=== PATIENT | female | born 1955 | race Caucasian/White ===

== ENCOUNTER 2016-08-23 15:25 | Emergency (ER) | payer BC ==
--- NOTE | ~2016-08-23 | CT4 ---
[facility] A Service of [facility] RADIOLOGY TEXT RESULTS PATIENT: ZARIA MELENDEZ LOCATION: [facility] : 59 UNIT #: [id number] AGE: [address]: Janny Lomas MD SEX: F ORDER DR: [id number] [facility] [address] [place], [place] [address] [id number] MR#: [id number] #: [id number] NAME: ZARIA MELENDEZ. : 1955 SEX: F STUDY DATE/TIME: 08/23/2016 19:41 UNIT: [facility] ROOM: STUDY DESCRIPTION: CT Abd and Pelv Wo Cont Attending Physician: Janny Lomas M.D. Ordering Physician: Janny Lomas M.D. Primary Care Physician: Zack Parsons M.D. MEDICAL IMAGING REPORT This report is preliminary unless electronic signature is present EXAM CT abdomen and pelvis 08/23/2016 HISTORY Left flank pain, nausea 2-3 days, kidney stones and stent. FINDINGS CT abdomen and pelvis performed without administration of oral or intravascular contrast. Comparison 11/23/2006. This CT examination was performed with one or more of the following radiation dose reduction techniques: automatic exposure control, adjustment of mA and/or kV according to patient size, and iterative reconstruction. The lung bases show calcified granuloma left lung base. Otherwise clear. Inferior heart and pericardium unremarkable. Calcified hepatic and splenic granulomata. Status post cholecystectomy. No biliary obstruction. Pancreas, adrenal glands unremarkable. Multiple small nonobstructing right renal calculi largest measuring on order of 2-3 mm. Right ureter remarkable. Mild left hydronephrosis. Multiple nonobstructing intrarenal calculi on the left. There is mild left hydroureter to the level of a 5-6 mm calculus about 1 cm above the left ureterovesical junction. There is mild left perinephric inflammatory change and there may be a trace amount of fluid adjacent to the left kidney. There is no drainable perinephric fluid collection. No other left ureteral calculi are seen. CT PELVIS: No inguinal adenopathy. Small focus of air in the urinary bladder. Favored to reflect recent instrumentation. Correlate clinically. Bladder otherwise unremarkable. Status post hysterectomy. I believe the patient retains the bilateral ovaries which are atrophic. There are tubal ligation clips in the pelvis. There is no pelvic fluid collection. There is no retroperitoneal or pelvic adenopathy. The distal esophagus, stomach, unremarkable. There are some mildly distended loops STS. [facility] A Service of [facility] RADIOLOGY TEXT RESULTS PATIENT: ZARIA MELENDEZ [id number] 59 UNIT #: [id number] AGE: [address]: Janny Lomas MD SEX: F ORDER DR: of jejunum in the left hemiabdomen measuring up to about 2.7 cm in diameter. There are intervening loops of decompressed small bowel in the abdomen. Air and fluid seen in mildly distended terminal ileum. There is no compelling evidence of small bowel obstruction. Please correlate with the patient's clinical presentation. Small bowel could best be further evaluated with contrast-enhanced examination utilizing enteric contrast. The colon contains moderate stool burden. No colonic inflammatory change or pathologic dilatation. Unopacified vascular structures unremarkable. Degenerative changes in spine. No acute-appearing bony abnormality. IMPRESSION 1. See the complete dictation above for full details. There is a 5-6 mm calculus in the distal left ureter, within a centimeter of the left ureterovesical junction resulting in mild left hydronephrosis and hydroureter. There is mild left perinephric inflammatory change and a trace amount of perinephric fluid but no drainable fluid collection. No other ureteral calculi are seen. There are bilateral intrarenal nonobstructing calculi. 2. Small focus of air in urinary bladder favored to reflect instrumentation. Correlate with any recent catheterization. Bladder otherwise unremarkable. 3. Status post cholecystectomy and hysterectomy. Patient appears to retain bilateral atrophic ovaries. 4. There is mild distension of some loops of jejunum containing food debris, fluid and air, without wall or fold thickening or adjacent inflammatory change. Intervening decompressed loops of small bowel, air and fluid seen in distal ileum. Favor the appearance of the small bowel is physiologic. Similar appearance on prior studies. There is no compelling evidence of small bowel obstruction. Correlate with the patient's clinical presentation. 5. Moderate stool burden in colon. No acute appearing colonic abnormality. Please see remainder of incidental findings in body of report above. Dictated by... Hrei Yousif M.D. THIS IS AN ELECTRONICALLY VERIFIED REPORT Heri Yousif M.D. at 08/24/2016 8:14 AM ALICIA/stacie TD: 08/24/2016 07:07 JOB #: [id number] MEDICAL IMAGING REPORT Page 1 of 1 COPY
[~2016-08-23 15:25] MED LIST: BACTRIM DS TABL1 TAB PO; CELEXA PO; COZAAR PO; FLEXERIL PO; HYDROCODONE-APA1 T30 PO; MULTI-VITAMIN1 TAB PO; PREMARIN PO; REGLAN PO; TYLOX 5/500 CAP1 CAP PO
[2016-08-23 16:04] LABS: BASOPHIL% 0.4 % (0-2.5); EOSINOPHIL% 0.8 % (0.0-7.0); HEMATOCRIT 38.2 % (35.0-45.0); HEMOGLOBIN 12.4 gm/dL (12.0-16.0); LYMPHOCYTE# 1.9 X10e3 (1.0-3.5); LYMPHOCYTE% 36.4 % (17.0-45.0); MEAN CELL VOLUME 82.3 FL (83-96); MEAN CORPUSCULAR HEMOGLOBIN 26.8 PG (28-34); MEAN CORPUSCULAR HGB CONC 32.5 g/dL (30-36); MEAN PLATELET VOLUME 7.6 FL (6.5-11.5); MONOCYTE# 0.3 X10e3 (0-1.0); NEUTROPHIL# 2.9 X10e3 (1.5-7.1); NEUTROPHIL% 56.4 % (40-75); PLATELET COUNT 139 X10e3 (140-420); RED BLOOD COUNT 4.65 X10e (3.90-5.30); RED CELL DISTRIBUTION WIDTH 14.3 % (11.0-15.5); WHITE BLOOD COUNT 5.2 X10e3 (4.0-10.5)
[2016-08-23 16:06] LABS: DIFF IND NO
[2016-08-23 16:30] LABS: BILIRUBIN, DIRECT 0.1 mg/dL (0.0-0.2); BILIRUBIN,INDIRECT 0.3 mg/dL (0.0-0.9); BILIRUBIN,TOTAL 0.4 mg/dL (0.2-2.0); CALCIUM SERUM 9.3 mg/dL (8.4-10.2); CREATININE SERUM 1.5 mg/dL (0.6-1.4); GLOM FILT RATE Estimated 37.8 mL/min (>60); POTASSIUM 3.6 mmol/L (3.5-5.1); PROTEIN TOTAL SERUM 7.3 g/dL (6.0-8.3)
[2016-08-23 17:17] LABS: URINE SOURCE CLEAN CATCH
[2016-08-23 17:24] LABS: URINE APPEARANCE CLOUDY; URINE BILIRUBIN NEG (NEG); URINE BLOOD 2+ (NEG); URINE COLOR YELLOW; URINE GLUCOSE NEG (NEG); URINE KETONE TRACE (NEG); URINE LEUKOCYTE ESTERASE TRACE (NEG); URINE NITRATE NEG (NEG); URINE PROTEIN 1+ (NEG); URINE SPECIFIC GRAVITY 1.025 (1.003-1.035); URINE UROBILINOGEN 0.2 MG/DL (NEG)
[2016-08-23 17:27] LABS: CULTURE INDICATED? YES; U HYALINE CASTS AUWI 0-2 /[LPF]; URINE BACTERIA AUWI NEG (NEGATIVE); URINE SQUAMOUS EPITHELIAL CELL OCC /[HPF]
== END 2016-08-23 22:21 | disposition home or self-care (01) ==
LOC: CED 15:25
DX: N13.2 Hydronephrosis with renal and ureteral calculous obstruction (principal); I10 Essential (primary) hypertension; Z87.442 Personal history of urinary calculi; Z90.710 Acquired absence of both cervix and uterus; Z79.899 Other long term (current) drug therapy
CPT/HCPCS: 36415; 74176; 80048; 80076; 81003; 83690; 85025; 87086; 87088; 87186; 96361; 96374; 96375; 99284; J1170; J2405